=== PATIENT | male | born 1965 | race Caucasian/White ===

== ENCOUNTER 2017-09-10 18:52 | Day surgery (SDC) | payer OTHER, SELFPAY ==
[~2017-09-10 18:52] MED LIST: PROPOFOL 200 MG/20 ML VIAL ONE; ePHEDrine/0.9% NaCl/PF SYRINGE 50 mg/10 ml ONE
[2017-09-10] MEDS ORDERED: CEFAZOLIN 1 GM VIAL ONE (19:29)
[2017-09-10] MEDS ORDERED: Bupivacaine 0.5% 10 ML VIAL ONE (19:41)
[2017-09-10] MEDS ORDERED: CEFAZOLIN/Water 2 GM/20 ML SYRINGE SLOW IVP SCH (19:45)
[2017-09-10] MEDS ORDERED: Fentanyl 100 MCG/2 ML VIAL ONE (20:17)
[2017-09-10] MEDS ORDERED: Ketamine 50 MG/ML VIAL ONE (20:17)
[2017-09-10] MEDS ORDERED: Midazolam HCl 2 mg/2 ml Vial ONE (20:17)
[2017-09-10] MEDS ORDERED: PROPOFOL 20 ML ONE (20:18)
[2017-09-10] MEDS ORDERED: Bupivacaine PF 0.5% 30 ML VIAL ONE (20:38)
[2017-09-10] MEDS ORDERED: Neomycin-Polymyxin 1 ML AMP ONE (20:56)
--- NOTE | 2017-09-11 01:12 | HP ---
DATE OF ADMISSION: 09/10/2017 HISTORY OF PRESENT ILLNESS: Mr. Nguyễn is a 52-year-old right-handed white male who was working o n his [employer] earlier today and caught his left thumb between a chain and another piece of equipmen t and had immediate pain. Multiple lacerations and deformity of the distal aspect of the left thumb. Patient was seen in the emergency room in [place] where x-rays revealed severely comminuted fractu res involving the left thumb at the distal phalanx down to the proximal aspect of the distal phalanx into the interphalangeal joint with obvious multiple soft tissue lacerations. The patient was transf erred here for further treatment. PAST MEDICAL HISTORY AND MEDICAL ILLNESSES: None. CURRENT MEDICATIONS: None. PAST SURGICAL HISTORY: None. ALLERGIES: None. PHYSICAL EXAMINATION: GENERAL: Patient is a pleasant male, alert and oriented x3, cooperative with the examination. VITAL SIGNS: Patient is afebrile, blood pressure 156/92, respiratory rate 18, pulse 88, O2 saturatio n 99 on room air. HEENT: Unremarkable for age. Cranial nerves II through XII grossly intact. NECK: Has good range of motion without pain. BACK: Thoracic and lumbar spine are nontender to palpation. LUNGS: Clear bilaterally. HEART: Regular rate and rhythm. ABDOMEN: Soft, nontender, bowel sounds positive. GENITOURINARY: Not done. EXTREMITIES: Unremarkable except for the left thumb. SKIN: The patient has multiple lacerations in the distal aspect of the thumb involving the distal ph alangeal region. Much of the skin is dark from lack of blood supply. 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 X-RAY FINDINGS: X-rays of the left thumb shows a severely comminuted fracture of the distal phalanx with fracture into the intra-articular surface at the base of the distal phalanx with soft tissue los s and multiple lacerations. IMPRESSION: Multiple lacerations and crush injury resulting in an open, severely comminuted fracture s of the distal phalanx with areas of necrotic soft tissue. PLAN: The patient will be taken to the operating room where irrigation and debridement of the left t humb with removal of some of the bone from the soft tissue excision of the necrotic tissue and obtain soft tissue closure. The patient understands that he has lost a portion of his thumb and tried to s ave as much as I can, but that will depend much on how much soft tissue still alive.
--- NOTE | 2017-09-11 02:12 | OP ---
DATE OF OPERATION: 09/10/2017 PREOPERATIVE DIAGNOSES: Crush injury resulting in multiple lacerations and severely comminuted dista l phalanx of the left thumb. POSTOPERATIVE DIAGNOSES: Crush injury resulting in multiple lacerations and severely comminuted dist al phalanx of the left thumb with laceration of the flexor tendon from the distal phalanx. PROCEDURES: Irrigation and debridement of the left thumb with repair of the flexure tendon to the re maining base of the distal phalanx and closure of wounds of the left thumb measuring 9 cm in total le [facility]. SURGEON: Dr. Omar Huff. ANESTHESIA: General. TECHNIQUE: Patient was given preoperative IV antibiotics, taken to the operating room, placed in sup ine position. Satisfactory general anesthesia was performed. Left hand, wrist, and forearm were scotty rilely prepped and draped in the usual fashion. A quarter-inch Serenity drain was placed at the base of his thumb and the thumb was copiously irrigated with antibiotic solution using the high-speed irri gator. There was some dirt and grass in the wound that was cleaned out both with irrigation lawnmower repair mechanic ally. There were fragments of bone that were in the wound that were barely still attached to soft ti ssue, these were removed. The distal aspect of the thumb was dark and was necrotic from lack of bloo d supply and it was excised. This included the nail and nail bed. The flexure tendon was reattached to the soft tissue to the remaining portion of the base of the distal phalanx using #0 Vicryl and th e skin that was cut along the palmar. Radial aspect of the thumb was repaired using 3-0 Rapide in in terrupted simple sutures. The soft tissue also had lacerations along the dorsal ulnar aspect of the thumb and these were closed also with 3-0 Rapide. There was a flap of tissue from the palmar aspect of the distal phalanx that was trimmed and then brought over and attached to the remaining skin edge, also using a 3-0 Rapide. This provided full coverage of the distal portion of the thumb. The quart er-inch Serenity drain was removed. A digital block was performed using 20 mL of 0.5% Marcaine plain. Sterile dressing was applied. The patient was awakened, extubated, and transferred to [facility] in stable condition. ESTIMATED BLOOD LOSS: Minimal. COMPLICATIONS: None. TOURNIQUET TIME: With the quarter-inch Serenity drain around the base of the thumb was 35 minutes. DISCHARGE MEDICATIONS: Tylenol No. 4 one every 4 hours as needed for pain, #50 with one refill; Bact rim-DS 1 twice a day for 5 days, #10. Follow up in my office in 1 week.
== END 2017-09-10 22:34 | disposition home or self-care (01) ==
LOC: ERS 18:52 → SDC/OP 21:07
PROVIDERS: ATTEND Orthopaedic Surgery
PROC: 0LM80ZZ Reattachment of Left Hand Tendon, Open Approach (ICD-10-PCS; principal; 2017-09-10)
DX: S67.02XA Crushing injury of left thumb, initial encounter (principal); S66.022A Laceration of long flexor muscle, fascia and tendon of left thumb at wrist and hand level, initial encounter; X58.XXXA Exposure to other specified factors, initial encounter; Z88.0 Allergy status to penicillin
CPT/HCPCS: 96374; G0390; J0690; J2250; J2704; J3010; J3490; S0020

== ENCOUNTER 2022-04-22 03:16 | Emergency (ER) | payer BC, SELFPAY ==
[2022-04-22] MEDS ORDERED: hydrALAZINE 20 MG/ML VIAL ONE ×2 (04:23→05:37)
[2022-04-22 04:36] LABS: #Eosinphils 0.1 thou/uL (0.0-0.7); #Monocytes 0.4 thou/uL (0.11-0.59); #Neutrophils 3.8 thou/uL (1.40-6.50); %Basophils 0.8 % (0.0-1.0); %Eosinophils 2.3 % (0.0-10.0); %Lymphocytes 18.6 % (21.0-51.0); %Monocytes 7.7 % (0.0-10.0); %Neutrophils 70.5 % (42.0-75.0); Hemoglobin 15.7 g/dL (14.0-18.0); Mean Corpuscular HGB CONC 35.2 g/dL (32.0-36.0); Mean Corpuscular Hemoglobin 31.8 pg (27.0-31.0); Mean Corpuscular Volume 90.3 fl (78.0-98.0); Mean Platelet Volume 8.5 fL (7.4-10.4); Platelet Count 178 10x3/uL (130-400); RBC Distribution Width 11.8 % (11.5-14.5); Red Blood Cell (RBC) Count 4.95 mill/uL (4.70-6.10); White Blood Cell (WBC) Count 5.4 10x3/uL (4.8-10.8)
[2022-04-22 05:08] LABS: ALT (SGPT) 24 U/L (8-55); AST (SGOT) 22 U/L (5-34); Albumin 4.4 g/dL (3.5-5.0); Alkaline Phosphatase 95 U/L (40-110); Anion Gap 14 mmol/L (10-20); BUN (Urea Nitrogen) 13 mg/dL (8.4-25.7); Bilirubin, Total 0.6 mg/dL (0.2-1.2); Calc. Creatinine Clearance 0 mL/min (70-130); Calcium 9.4 mg/dL (7.8-10.44); Carbon Dioxide 22 mmol/L (22-29); Chloride 105 mmol/L (98-107); Estimated GFR 100; Glucose 112 mg/dL (70-105); Potassium 4.2 mmol/L (3.5-5.1); Protein, Total 7.4 g/dL (6.0-8.3); Sodium 137 mmol/L (136-145)
== END 2022-04-22 06:46 | disposition home or self-care (01) ==
LOC: ERS 03:16
DX: I10 Essential (primary) hypertension (principal); F17.220 Nicotine dependence, chewing tobacco, uncomplicated
CPT/HCPCS: 36415; 71045; 80053; 83880; 84484; 85025; 93005; 96374; 96376; J0360